=== PATIENT | female | born 1945 | race Caucasian/White ===

== ENCOUNTER 2022-05-05 13:35 | Outpatient (REF) | payer MEDICARE, SELFPAY ==
--- NOTE | ~2022-05-05 | MM_ITS ---
EXAMINATION: MM SCREENING DIGITAL BREAST TOMOSYNTHESIS, BILATERAL CLINICAL INFORMATION: Screening. Asymptomatic. Family history breast cancer, mother. The lifetime risk of breast cancer based on the Tyrer-Cuzick Model is 10%. COMPARISON: Mammography: 07/27/2019, 07/10/2018, 07/03/2017 TECHNIQUE: Digital breast tomosynthesis is performed in both the craniocaudal and mediolateral oblique views along with computer-aided detection (CAD). Synthesized 2D images are generated from the tomosynthesis. FINDINGS: There are scattered areas of fibroglandular density (ACR BI-RADS breast composition Category b). Anterior breast tissue composition borders on heterogeneously dense. There are no significant masses, abnormal calcifications, or other abnormalities. No architectural abnormality or developing density. The axilla and skin contours are unremarkable. No significant changes. MM/MM tomosynthesis screening BI IMPRESSION: No mammographic evidence of malignancy. ASSESSMENT: BI-RADS 1: Negative RECOMMENDATION: Routine annual mammography screening. This patient's information was entered into a reminder system with a target due date for their next mammogram.
== END 2022-05-05 13:36 | disposition home or self-care (01) ==
LOC: HO.MAMMO 13:35
PROVIDERS: Visit Provider Obstetrics & Gynecology
DX: Z12.31 Encounter for screening mammogram for malignant neoplasm of breast (principal)
CPT/HCPCS: 77063; 77067

== ENCOUNTER 2023-05-06 14:11 | Outpatient (REF) | payer MEDICARE, SELFPAY ==
--- NOTE | ~2023-05-06 | MM_ITS ---
EXAMINATION: MM SCREENING DIGITAL BREAST TOMOSYNTHESIS, BILATERAL CLINICAL INFORMATION: Screening. Asymptomatic. The lifetime risk of breast cancer based on the Tyrer-Cuzick Model is 7.3%. COMPARISON: Mammography: 05/05/2022, 07/27/2019, 07/10/2018, and dating back to 2015. TECHNIQUE: Digital breast tomosynthesis is performed in both the craniocaudal and mediolateral oblique views along with computer-aided detection (CAD). Synthesized 2D images are generated from the tomosynthesis. FINDINGS: The breasts are heterogeneously dense, which may obscure small masses (ACR BI-RADS breast composition Category c). There are no suspicious masses, suspicious clustered calcifications, or regions of architectural distortion which can be distinguished from the heterogeneously dense parenchymal pattern. The parenchymal pattern appears stable. MM/MM tomosynthesis screening BI IMPRESSION: No mammographic evidence of malignancy. ASSESSMENT: BI-RADS BI-RADS 1 - Negative RECOMMENDATION: Routine annual mammography screening. 1 year F/U This examination should not preclude the clinical evaluation of a suspicious palpable abnormality. This patient's information was entered into a reminder system with a target due date for their next mammogram.
== END 2023-05-06 14:12 | disposition home or self-care (01) ==
LOC: HO.MAMMO 14:11
PROVIDERS: PCP Family Medicine; Visit Provider Obstetrics & Gynecology
DX: Z12.31 Encounter for screening mammogram for malignant neoplasm of breast (principal)
CPT/HCPCS: 77063; 77067

== ENCOUNTER → 2023-05-06 14:30 | Outpatient (BNV) | payer MEDICARE, SELFPAY | PROVIDERS: PCP Family Medicine; Visit Provider Radiology Diagnostic Radiology | DX: Z12.31 Encounter for screening mammogram for malignant neoplasm of breast (principal) | CPT/HCPCS: 77063; 77067 ==

== ENCOUNTER 2024-09-12 12:13 | Outpatient (REF) | payer MEDICARE, SELFPAY ==
--- NOTE | ~2024-09-12 | MM_ITS ---
EXAMINATION: MM SCREENING DIGITAL BREAST TOMOSYNTHESIS, BILATERAL CLINICAL INFORMATION: Screening. Asymptomatic. COMPARISON: Mammography: Comparison is made with available priors TECHNIQUE: Digital breast mammography with tomosynthesis is performed in both the craniocaudal and mediolateral oblique views along with computer-aided detection (CAD). FINDINGS: There are scattered areas of fibroglandular density (ACR BI-RADS breast composition Category b). Bilateral reduction mammoplasty. There are no significant masses, abnormal calcifications, or other abnormalities. MM/MM tomosynthesis screening BI IMPRESSION: No mammographic evidence of malignancy. ASSESSMENT: BI-RADS BI-RADS 2 - Benign Findings RECOMMENDATION: Routine annual mammography screening. 1 year F/U This examination should not preclude the clinical evaluation of a suspicious palpable abnormality. This patient's information was entered into a reminder system with a target due date for their next mammogram. Electronically signed by: Sandra Scott DO 09/21/2024 03:13 PM TATA
== END 2024-09-12 12:14 | disposition home or self-care (01) ==
LOC: HO.MAMMO 12:13
PROVIDERS: PCP Nurse Practitioner Family; Visit Provider Obstetrics & Gynecology
DX: Z12.31 Encounter for screening mammogram for malignant neoplasm of breast (principal)
CPT/HCPCS: 77063; 77067

== ENCOUNTER → 2024-09-12 12:30 | Outpatient (BNV) | payer MEDICARE, SELFPAY | PROVIDERS: PCP Nurse Practitioner Family; Visit Provider Internal Medicine | DX: Z12.31 Encounter for screening mammogram for malignant neoplasm of breast (principal) | CPT/HCPCS: 77063; 77067 ==

== ENCOUNTER 2025-10-02 14:17 | Outpatient (REF) | payer MEDICARE, SELFPAY ==
--- NOTE | ~2025-10-02 | XR_ITS ---
EXAMINATION: XR THORACIC SPINE CLINICAL INFORMATION: M54.9 - Dorsalgia, unspecified COMPARISON: None available. TECHNIQUE: 2 views of the thoracic spine were obtained. FINDINGS: There is 21 degrees levoscoliosis of the upper thoracic spine with apex at T4. Osteopenia limits evaluation of the thoracic spine on the lateral view. There is likely disc space narrowing in the mid to upper thoracic spine with small anterior osteophytes. XR/XR thoracic spine 3V IMPRESSION: Mild levoscoliosis and degenerative disc disease. Electronically signed by: Adiel Duarte MD 10/02/2025 04:24 PM TATA
--- NOTE | ~2025-10-02 | XR_ITS ---
Examination: Three-view lumbar spine x-ray TECHNIQUE: AP, lateral, lateral spot L-spine x-ray Prior: None FINDINGS: Atherosclerotic calcifications are visible in the abdominal aorta. There are 5 nonrib-bearing lumbar segments. There is 23 degrees levoscoliosis with apex at L2. T12-L1: There is mild disc space narrowing. L1-L2: There is mild disc space narrowing with anterior osteophytes L2-L3: There is mild disc space narrowing with right lateral listhesis L3-L4: There is moderate disc space narrowing with right lateral listhesis. There is facet sclerosis. L4-L5: There is mild disc space narrowing with sclerosis along the endplates on the right side. There is facet sclerosis. L5-S1: There is facet sclerosis. XR/XR lumbar spine 4V min IMPRESSION: Moderate dextroscoliosis with right lateral listhesis at L2-3 and L3-4 and degenerative disc disease with facet osteoarthritis. Electronically signed by: Adiel Duarte MD 10/02/2025 04:21 PM TATA
--- OUTSIDE RECORDS SUMMARY | 2025-10-02 21:52 | XMS_ITS | Data Portability ---
Author Organization [place] - [facility], Allergy Address [address] [place] [address] Care Team Providers Care Floor Manager Name Role Phone JI RIVERA Primary Care [...] 06/16/2025 06/16/2025 Follow up with referring provider. [email or web address] Not available 06/16/2025 14:01:22 Plan of Treatment [...] Organization Details Recorded Time Bleeding from nose 257796044 Active 2020 Epistaxi s; Note: Date Diagnose d: 05/20/2021 10:41 AM (R04.0) Not Available [facility] 4 02:39:56 Impacted cerumen in right ear 08091287532 01425 Active 2020 Impacted cerumen, right ear; Note: Date Diagnose d: 05/20/2021 10:53 AM (H61.21) Not Available [facility] 4 02:39:55 Tinnitus of vascular origin 128452651 Completed 202005/20/2024 Pulsatil e tinnitus , right ear; Note: Date Diagnose d: 05/20/2021 10:53 AM (H93.A1) Not Available [facility] 4 02:40:03 Sensorin eural hearing loss of bilatera l ears 799747229 Active 2020 Sensorin eural hearing loss, bilatera l; Note: Date Diagnose d: 1 2:17 PM (H90.3) Not Available [facility] 4 02:39:58 Tinnitus of right ear 64833193292 08 Active [address] [facility] 4 11:46:49 Xerostom ia 24373594 Active 2024 DINESH BOCANEGRA MD [address],[place] [address], [place], [address] , [facility] 5 14:34:34 Bilatera l hearing loss 59922192 Active 2024 DINESH BOCANEGRA MD [address],[place] [address], [place], [address] , [facility] 5 14:34:48 Problem Notes None recorded. Procedures Surgical History Date Name Laterality Status Provider Name and Address Organization Details Recorded Time 06/16/2025 Air & Speech Audio with Tymps - 78981, 99544 & 88832 completed BRIJESH REINA, AuD [address],[place] [address], [place], [address], [facility] 06/16/2025 14:01:22 05/19/2024 Comp Audio with Tymps - 57437 & 97555 completed MENG DEVINE, AUD [address],[place] [address], [place], [address], [facility] 05/19/2024 13:21:20 Imaging Results None recorded. Procedure Notes None recorded. Medical Equipment None Reported. Allergies Allergen ID Allergen Name Allergen Category Reaction Reaction Severity Criticality Documentation Date Start Date Code Code System Note Provider Name and Address Organization Details Recorded Time 694766 Humira medicatio n Not available Not available Not available 04/28/2024 05028 4 RxNorm Gwendolyn carter [place] - [facility] 4 11:22:31 00915 Non-stero idal anti-infl ammatory agent (substanc e) medicatio n other Not available Not available 03/01/2024 49283 5008 SNOMED React ion: other react ion, Unkno wn; Not Available [facility] 4 00:56:35 55805 Plaquenil medicatio n other Not available Not available 03/01/2024 74823 2 RxNorm React ion: other react ion, Unkno wn; Not Available [facility] 4 00:56:35 77455 Elavil medicatio n other Not available Not available 03/01/2024 00636 RxNorm React ion: other react ion, Unkno wn; Not Available [facility] 4 00:56:38 84901 lidocaine medicatio n other Not available Not available 03/01/2024 6387 RxNorm React ion: other react ion, Unkno wn; Not Available [facility] 4 00:56:44 06873 Cafergot medicatio n other Not available Not available 03/01/202420017 RxNorm React ion: other react ion, Unkno wn; Not Available [facility] 4 00:56:47 Medications Name Sig Start Date [...] % shampoo 04/28 completed Medicati on ID: [id number] B rand Name: ketocona zole Sen d Method: E-Prescr ibed Sub s Allowed: subs OK Medic ationGen ericName : ketocona zole [facility] [id number] B rand Name: ketocona zole Sen d [...] mg tablet 04/28 completed Medicati on ID: [id number] B rand Name: meclizin e Send Method: E-Prescr ibed Sub s Allowed: subs OK Medic ationGen ericName : meclizin e Medica tion ID: [id number] B rand Name: meclizin e Send Method: [...] mcg tablet 04/28 completed Medicati on ID: [id number] B rand Name: levothyr oxine Se nd Method: E-Prescr ibed Sub s Allowed: subs OK Medic ationGen ericName : levothyr oxine Id dication ID: [id number] B rand Name: levothyr oxine Se nd [...] topical cream 2020 active Medicati on ID: [id number] B rand Name: triamcin olone acetonid e [...] topical ointment 04/28 completed Medicati on ID: [id number] B rand Name: clobetas ol Send Method: E-Prescr ibed Sub s Allowed: subs OK Medic ationGen ericName : clobetas ol Medic ation ID: [id number] B rand Name: clobetas ol Send Method: [...] shower cap 06/16 completed Medicati on ID: [id number] B rand Name: fluocino lone and shower cap Send Method: E-Prescr ibed Sub s Allowed: subs OK Medic ationGen ericName : fluocino lone and shower cap Not Available Not Available Not Available Cafergot 05/20 completed Medicati on ID: [id number] B rand Name: Cafergot Send Method: E-Prescr [...] Updated DateTime 04/28/2024 160.02 cm 24.1 kg/m2 28045.[address] [facility] 04/28/2024 11:22:18 Date Recorded Body height Body mass index (BMI) Body weight Provider Name and Address Organization Details Last Updated DateTime 06/16/2025 160.02 cm 23.9 kg/m2 49813.[address] [facility] 06/16/2025 14:21:46 Social History None recorded. Functional [...] Note [id number] FAY MAZA PA-C [facility] [address] [place] [phone] 2 04/28/2024 11:11:56 04/28/2024 11:42:51 Tinnitus of right ear 9854777321 108 H93.11 Impacted c erumen in right ear 0749504787 596914 H61.21 [id number] FAY MAZA PA-C [facility] [address] [place] [phone] 2 05/19/2024 13:01:13 05/19/2024 13:33:58 Tinnitus of right ear 8739747892 108 H93.11 Sensorineu ral hearing loss of bilateral ears 621045625 H90.3 18950 MARYAM ALEJANDRO [facility] [address] [place] [phone] 2 05/19/2024 13:17:20 05/19/2024 14:08:10 Sensorineural hearing loss of bilateral ears 844556668 H90.3 Audiologic al evaluation results: Right ear: Normal sloping to moderate sensorineu ral hearing loss with excellent word recognitio n. Left ear: Normal sloping to moderate sensorineu ral hearing loss with excellent word recognitio n. Tympanomet ry: Right Ear:Type A Left Ear:Type A [id number] DINESH BOCANEGRA MD [facility] [address] [place] [phone] 06/16/2025 13:19:25 06/16/2025 14:34:02 Xerostomia 07306751 K11.7 8025 Likely multifacto rial due to medication as well as not drinking fluids overnight. This seems to improve with drinking fluids during the day. I recommend observatio n. Bilateral hearing loss 95848291 H90.A21 75651449 Audiogram was stable today on audiometri c testing. Asymmetry is subtle. We will continue surveillan ce with a follow-up audiogram in 1 year. I asked her to call with any sudden hearing changes. [id number] Maryam LIVINGSTON [facility] [address] [place] [phone] 2 06/16/2025 14:01:10 06/16/2025 14:41:28 Sensorineural hearing loss of bilateral ears 070350219 H90.3 Audiologic al evaluation results:Ri ght ear:Normal [...] Guarantor Name 06/16/2025 2 [place] Daniela Hoog [id number] Daniela Brody 06/16/2025 1 [place] [employer] Daniela Hoog [id number] Daniela Hoog 06/20/2025 2 [place]) [id number] Daniela Hoog [id number] Daniela Brody Notes Date Note Type [...] carter [place] - [facility] 04/28/2024 11:47:06 05/19/2024 text/html Audiological Evaluation HPIReported by PatientHearing LossFor hearing loss perceived, patient reportshearing loss in both ears (no differences noted between ears)but reportsgradual onset.TinnitusFor tinnitus reported, patient reportsright ear.Use of amplification or other hearing devicesFor use of amplification or other hearing devices, patient reportsnone (does not use amplification). MENG DEVINE, [address], [address], [place] - [facility] 05/19/2024 13:24:36 05/19/2024 text/html ROS as noted in the HPI 78 year old female seen three weeks ago for a whooshing tinnitus in her right ear. She was noted to have a crust overlying the TM. She has been using olive oil drops to the right ear at bedtime. The tinnitus has improved. Fay carter [place] - [facility] 05/19/2024 13:35:51 06/16/2025 text/html ROS as noted in the HPI She has a history of asymmetric sensorineural hearing loss slightly worse in the right ear. She presents for 1 year surveillance audiogram. She denies any hearing changes. She reports her mouth is dry in the morning. She attributes this to some of the medication she is taking. DINESH BOCANEGRA MD [address] [facility],[place] [address], [place], [address], [facility] 06/16/2025 14:35:53 06/16/2025 text/html Audiological Evaluation HPIReported by PatientHearing LossFor hearing loss perceived, patient reportshearing loss in both ears (no differences noted between ears). Maryam LIVINGSTON [address] [facility],[place] [address], [place], [address], [facility] 06/16/2025 14:07:39 OBGyn Episode No OBEpisode recorded.
== END 2025-10-02 14:18 | disposition home or self-care (01) ==
LOC: HO.XRAY 14:17
PROVIDERS: PCP Nurse Practitioner Family; Visit Provider Nurse Practitioner Family
DX: G89.4 Chronic pain syndrome (principal); M96.1 Postlaminectomy syndrome, not elsewhere classified; M47.817 Spondylosis without myelopathy or radiculopathy, lumbosacral region; M43.16 Spondylolisthesis, lumbar region; M51.360 Other intervertebral disc degeneration, lumbar region with discogenic back pain only; M41.9 Scoliosis, unspecified
CPT/HCPCS: 72072; 72110; 99202

== ENCOUNTER 2025-10-02 14:17 | Outpatient (AMB) | payer MEDICARE, SELFPAY ==
--- NOTE | 2025-10-02 14:20 | A.OFFVIS_ITS ---
Vital Signs 10/02/25 14:27 Height 5 ft 3 in Weight 137 lb BMI 24.3 BP 150/72 H Blood Pressure Location Rt brachial Position Sitting Pulse 87 Pulse Source Pulse Oximeter Pulse Oximetry (%) 98 Oxygen Delivery Method Room Air Intake Visit Reasons: CHRONIC LOW BACK PAIN Intake Note: Pain today 610 Women Specialist Required: No Accompanied by: Spouse Allergies adalimumab (From Humira) Allergy (Unknown, Verified 10/02/25 14:48) Unknown amitriptyline Allergy (Unknown, Verified 10/02/25 14:47) Unknown caffeine (Cafergot) Allergy (Unknown, Verified 10/02/25 14:47) Hallucinations ergotamine (Cafergot) Allergy (Unknown, Verified 10/02/25 14:47) Hallucinations hydroxychloroquine (Plaquenil) Allergy (Unknown, Verified 10/02/25 14:47) rash lidocaine Allergy (Unknown, Verified 10/02/25 14:47) Dizziness Elavil Allergy (Unknown, Uncoded 10/02/25 14:47) vertigo NSAIDS Allergy (Unknown, Uncoded 10/02/25 14:47) Gastrointestinal Hemorrhage HPI Comments Details: The patient is a 79-year-old female presenting for evaluation and management of chronic low back pain. Her back pain began in 1987 after a fall during a volleyball game at age 42. She underwent a micro-lumbar surgery at L5-S1 in December 1988. Patient reports that post-operatively, a myelogram revealed adhesions where the thecal sac abuts the nerves, and her surgeon advised against further surgery, warning it could result in her needing a wheelchair. The patient describes the pain as a constant, aching sensation localized to the lower back, which can spread to the middle back. The pain is exacerbated by prolonged sitting, standing, lifting, and shopping, with an intensity that varies from 3/10 to 10/10. She has not had recent imaging, with her last MRI dating back to 1990. She reports significant limitations in her activities of daily living, including inability to do groceries, cook, vacuum, do laundry, make the bed, iron, or travel. Her pain has led to a mostly sedentary lifestyle since 1987. Past treatments have included numerours sessions of physical therapy, acupuncture, a TENS unit, a sculpted back brace, and hypnotic analgesia, all with limited success and some PT sessions exacerbated her pain. Her current pain management regimen consists of Fioricet, duloxetine and diazepam, which she has been taking since 1991 and feels are the only effective medications. Her Fioricet dose was recently reduced from four pills per day to one per day, which has resulted in worsening pain. She takes diazepam 2.5-5 mg as needed. She reports taking additional acetaminophen to manage the increased pain since the Fioricet reduction. Her medical history is also significant for fibromyalgia, tension and migraine headaches, polymyalgia rheumatica (PMR), psoriatic arthritis, glaucoma, and MGUS. For PMR, she takes prednisone and is unable to taper the dose without a significant increase in symptoms. She has tried numerous other medications, including NSAIDs which caused GI bleeding and skin tears, and various antidepressants for anxiety and depression which caused side effects like vertigo. She is on duloxetine 60 mg but experienced significant dizziness with an attempted dose increase. The patient denies any history of diabetes, muscle spasms in the back, urinary incontinence, or leg heaviness. She does not smoke, drink alcohol, or use any illicit substances. She currently sees a Psychologist. 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 Pain Description - Pain Onset: Began in 1987 after a volleyball injury. - Pain Location: Localized to the lower back, spreads to the middle back. - Pain Radiation: Does not radiate to the legs. - Pain Quality: Described as aching, sore, heavy, and throbbing. - Pain Severity: Varies throughout the day, ranging from 3/10 to 10/10. - Exacerbating Factors: Worsened by prolonged sitting or standing, lifting, and shopping. - Interference with Function: Pain significantly impacts sleep and daily activities, leading to a sedentary lifestyle. - Associated Symptoms: Causes feelings of tiredness and exhaustion. Pain Management - Analgesia: The patient reports her pain has worsened since her Fioricet was reduced to one pill per day. - She states that Fioricet and diazepam are the only medications that have helped control her pain. - She has been taking extra acetaminophen (2000 mg/day) since the Fioricet reduction. 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 - She has lived a mostly sedentary life since 1987 due to her pain. - Adverse Effects: Patient has a history of GI bleeding with ibuprofen, skin tears with naproxen, and severe vertigo with Elavil. - She reports dizziness with an attempted increase in her duloxetine dose. - She worries about potential liver damage from increased acetaminophen use. - Affect: The patient reports significant anxiety and difficulty sleeping due to her pain and functional limitations. - Aberrant Drug-Related Behaviors: The patient denies a history of opioid use outside of post-surgical settings, alcohol use, smoking, or illicit drug use. - She states she has never asked for more medication but also cannot imagine her life without Fioricet or diazepam. 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 - Neurological: Reports tension and migraine headaches. - Denies current migraines, leg pain, heaviness in the legs, and urine incontinence. - Musculoskeletal: Reports chronic aching pain in the lower and middle back. - Denies muscle spasms. - Psychiatric: Reports anxiety and difficulty sleeping. - Endocrine: Denies diabetes. Const All systems reviewed & are unremarkable except as noted in HPI and below Physical Exam Vital Signs: Last Vital Signs Pulse 87 10/02/25 14:27 BP 150/72 H 10/02/25 14:27 Pulse Ox 98 10/02/25 14:27 Oxygen Delivery Method Room Air 10/02/25 14:27 BMI result Body Mass Index 24.3 General: Appears afebrile. Alert and oriented. Mood and affect appropriate. Follows and participates in conversation appropriately. Respiratory effort is unlabored. No cough. Able to transition from sit to stand unassisted. Guarded transfers and ambulation. Patient is unable to perform toe and heel walking due to back pain. General: Yes no CVA tenderness Back/Spine/Pelvis Other: Limited lumbar ROM due pain. Lumbar flexion and extension reproduces pain. Mild to moderate TTP midline lumbar spine and over the sacroiliac joint areas. She is unable to perform a straight leg raise or maintain the leg parallel to the floor due to pain.Demonstrates 5/5 strength of quadriceps bilaterally as well as flexion/dorsiflexion of bilateral feet against resistance. 2+ pedal pulses bilaterally. Facet loading test positive bilaterally. No groin pain with I/E hip rotations. Valsalva maneuver negative. Back: no CVA tenderness Cervical Spine: loss of normal cervical lordosis, cervical muscular tenderness, No Cervical spine scars present and Cervical spine tenderness Thoracic/Lumbar Spine: thoracic and lumbar spine normal to inspection, Thoracic/lumbar spine scar(s), kyphosis, pain with thoraco-lumbar ROM, paraspinal muscle tenderness, thoraco-lumbar ROM limited, Thoracic/lumbar scoliosis, No thoracic spinal tenderness and lumbar spinal tenderness (upper and lower lumbar) Sacroiliac joints: bilaterally (Unable to perform provocative tests due to pain increase) tender to palpation Extrem General: Yes capillary refill normal, Yes no clubbing, cyanosis or edema and Yes no calf tenderness Results Reviewed Results Reviewed: XR lumbar spine 4V min 10/02/25 TECHNIQUE: AP, lateral, lateral spot L-spine x-ray Prior: None FINDINGS: Atherosclerotic calcifications are visible in the abdominal aorta. There are 5 nonrib-bearing lumbar segments. There is 23 degrees levoscoliosis with apex at L2. T12-L1: There is mild disc space narrowing. L1-L2: There is mild disc space narrowing with anterior osteophytes L2-L3: There is mild disc space narrowing with right lateral listhesis L3-L4: There is moderate disc space narrowing with right lateral listhesis. There is facet sclerosis. L4-L5: There is mild disc space narrowing with sclerosis along the endplates on the right side. There is facet sclerosis. L5-S1: There is facet sclerosis. IMPRESSION: Moderate dextroscoliosis with right lateral listhesis at L2-3 and L3-4 and degenerative disc disease with facet osteoarthritis. XR THORACIC SPINE 10/02/25 CLINICAL INFORMATION: M54.9 - Dorsalgia, unspecified COMPARISON: None available. TECHNIQUE: 2 views of the thoracic spine were obtained. FINDINGS: There is 21 degrees levoscoliosis of the upper thoracic spine with apex at T4. Osteopenia limits evaluation of the thoracic spine on the lateral view. There is likely disc space narrowing in the mid to upper thoracic spine with small anterior osteophytes. IMPRESSION: Mild levoscoliosis and degenerative disc disease. Assessment & Plan Assessment & Plan (1) Chronic pain syndrome: Code(s): G89.4 - Chronic pain syndrome Category: Medical (2) Lumbar post-laminectomy syndrome: Code(s): M96.1 - Postlaminectomy syndrome, not elsewhere classified Category: Medical (3) Lumbosacral spondylosis: Code(s): M47.817 - Spondylosis without myelopathy or radiculopathy, lumbosacral region Category: Medical (4) Mid back pain: Code(s): M54.9 - Dorsalgia, unspecified Category: Medical (5) Spondylolisthesis, lumbar region: Code(s): M43.16 - Spondylolisthesis, lumbar region Category: Medical (6) Lumbar degenerative disc disease: Code(s): M51.369 - Other intervertebral disc degeneration, lumbar region without mention of lumbar back pain or lower extremity pain Category: Medical (7) Scoliosis of thoracolumbar spine: Code(s): M41.9 - Scoliosis, unspecified Category: Medical Plan Plan is to proceed with MRI of the lumbar spine to assess for neural integrity and compression and follow up on previous MRI findings as her last MRI imaging is over 30 years old and also follow up on recent xray findings. We discussed interventional treatments for chronic mid and low back pain, including neuromodulation, radiofrequency ablation, diagnostic and therapeutic injections. Patient is hesitant towards implantable devices. I have informed patient that I do not offer chronic opioid prescribing. We discussed long-term and daily use of Fioricet for chronic pain is not supported and can be taken for tension headaches and sometimes can be used off-label for migraines if other conservative treatments have failed. It was recommended she discuss safer, alternative long-term pain management strategies with her primary care provider, with suggestions including low-dose opioid patches (Butrans, Fentanyl) or sublingual films (Belbuca), which may have fewer side effects. The patient was also advised to follow up with her primary care provider or a Neurologist regarding optimal management of her fibromyalgia and persistent tension headaches as well as consider cognitive behavioral therapy through her Psychologist. All questions and concerns have been answered and patient agreed with the treatment plan. Follow up for MRI results and sooner as needed. Patient was informed and verbally consented to the use of an ambient scribe for clinic note documentation during this visit. Orders: Orders XR thoracic spine 3V 10/02/25 M54.9 - Dorsalgia, unspecified XR lumbar spine 4V min 10/02/25 M47.817 - Spondylosis without myelopathy or radiculopathy, lumbosacral region, M96.1 - Postlaminectomy syndrome, not elsewhere classified MR lumbar spine wo con Today M41.9 - Scoliosis, unspecified, M43.16 - Spondylolisthesis, lumbar region, M47.817 - Spondylosis without myelopathy or radiculopathy, lumbosacral region, M51.369 - Other intervertebral disc degeneration, lumbar region without mention of lumbar back pain or lower extremity pain, M96.1 - Postlaminectomy syndrome, not elsewhere classified Coding Level of Care Code New Pt Level 4 (50186) Diagnoses Chronic pain syndrome G89.4 Lumbar post-laminectomy syndrome M96.1 Lumbosacral spondylosis M47.817 Mid back pain M54.9 Spondylolisthesis, lumbar region M43.16 Lumbar degenerative disc disease M51.369 Scoliosis of thoracolumbar spine M41.9
[2025-10-02 14:27] VITALS: BP 150/72; PULSE 87; O2SAT 98; BMI 24.3
--- OUTSIDE RECORDS SUMMARY | 2025-10-02 20:42 | XMS_ITS | Clinical Summary ---
Author Organization [facility] Prior to 03/18/[address] [place] [address] Care Team Providers Care Unit Controller Name Role Phone Alejandra Waldrop MD Primary Care Provider [phone] Allergies Active Allergy Reactions Criticality Noted Date Comments Ergotamine-Caffeine 11/13/2017 Amitriptyline 11/13/2017 Lidocaine 11/13/2017 Nsaids 11/13/2017 Hydroxychloroquine 11/13/2017 Medications Medication Sig Dispensed Refills Start Date End Date Status amLODIPine (NORVASC) tablet 5 mg Take 5 mg by mouth daily. 0 Active duloxetine (CYMBALTA) DR capsule 60 mg Take 60 mg by mouth daily. 0 Active DIAZEPAM PO Take 2.5 mg by mouth 4 (four) times a day. 0 Active Adalimumab (HUMIRA) 40 MG/0.8ML injection Inject 40 mg under the skin once. 0 Active hydrochlorothiazide (MICROZIDE) 12.5 MG capsule Take 12.5 mg by mouth daily. 0 Active levothyroxine (SYNTHROID, LEVOXYL) tablet 100 mcg Take 100 mcg by mouth every morning on an empty stomach. 0 Active omeprazole (PRILOSEC) 20 MG capsule Take 20 mg by mouth daily. 0 Active Butalbital-Acetaminoph en 25-325 MG TABS Take 2 tablets by mouth 3 (three) times a day. 0 Active predniSONE 5 MG TBEC Take 5 mg by mouth every morning with breakfast. 0 Active vitamin C (ASCORBIC ACID) 500 MG tablet Take 500 mg by mouth daily. 0 Active Cholecalciferol (VITAMIN D3) 2000 units capsule Take 2,000 Units by mouth daily. 0 Active docusate sodium (COLACE) 100 MG capsule Take 100 mg by mouth 2 (two) times a day. 0 Active Active Problems Problem Noted Date Diagnosed Date Acquired hypothyroidism 11/04/2019 Macrocytosis without anemia 11/16/2018 H/O cold sores 11/16/2018 MGUS (monoclonal gammopathy of unknown significa nce) 11/13/2017 Psoriatic arthritis 11/13/2017 H/O subarachnoid hemorrhage 11/13/2017 H/O superficial phlebitis 11/13/2017 Family History Medical History Relation Name Comments Bone cancer Maternal Grandmother Breast cancer Mother Colon cancer Mother Multiple myeloma Neg Hx Relation Name Status Comments Maternal Grandmother Mother Social History Tobacco Use Types Packs/Day Years Used Date Smoking Tobacco: Never Smokeless Tobacco: Never Alcohol Use Standard Drinks/Week Comments No 0 (1 standard drink = 0.6 oz pur e alcohol) Sex and Gender Information Value Date Recorded Sex Assigned at Not on file Gender Identity Not on file Sexual Orientation Not on file Last Filed Vital Signs Vital Sign Reading Time Taken Comments Blood Pressure 148/68 11/04/2019 9:40 AM EST Pulse 71 11/04/2019 9:40 AM EST Temperature 37 C (98.6 F) 11/04/2019 9:40 AM EST Respiratory Rate - - Oxygen Saturation - - Inhaled Oxygen Concentration - - Weight 77.6 kg (171 lb) 11/04/2019 9:40 AM EST Height 160 cm (5' 3 ) 11/04/2019 9:40 AM EST Body Mass Index 30.29 11/04/2019 9:40 AM EST Plan of Treatment Health Maintenance Due Date Last Done Comments Hepatitis C Screening 1945 COVID-19 Vaccine (#1) 12/16/1952 Pneumococcal Vaccine (1 of 2 - PCV) 12/16/1953 Depression Screening 1959 Preventative Health Evaluation 12/16/1965 DTap / Tdap / Td (1 - Tdap) 12/16/1966 Shingrix-Zoster Vaccine (1 of 2) 12/16/1966 Fall Risk Assessment 12/16/2012 Osteoporosis Screening (DEXA Scan) 12/16/2012 RSV Adult > 60+ Yrs or Pregn ant (1 - 1-dose 75+ series) 12/16/2022 Influenza Vaccine (#1) 2025 Hepatitis B Vaccines Aged Out No long er eligible based on patient's age to complete this topic RSV Ped < 20 months Aged Out No longe r eligible based on patient's age to complete this topic Care Teams Unit Controller Relationship Specialty Start Date End Date Alejandra Waldrop MD [address] [place] [address] [place] [id number] PCP - General Family Medicine 10/16/17
--- OUTSIDE RECORDS SUMMARY | 2025-10-02 20:42 | XMS_ITS | Data Portability ---
Author Organization [place] - [facility], Allergy Address [address] [place] [address] Care Team Providers Care Manager Life Insurance Name Role Phone JI RIVERA Primary Care Provider Assessment Encounter Date Assessment Date Assessment LastModified by Organization Details LastModified Time 04/28/2024 04/28/2024 On examination today she does have a crust overlying the right tympanic membrane, likely related to dry flaky skin. I was unable to completely debride this today. I would recommend a few drops of olive oil or mineral oil at bedtime. This should help soften the crusting and make it more amenable to removal. She will follow up in 3-4 weeks. If no improvement in the tinnitus, we can plan on an updated audiogram at that time. [email or web address] Not available 04/28/2024 11:46:45 05/19/2024 05/19/2024 On examination today the crust overlying the TM has resolved. Ear exam is normal. Audiogram demonstrates a high frequency sensorineural hearing loss bilaterally. The hearing is slightly worse in the right ear than the left, but not significant enough to warrant further work up. Recommend repeat audiogram in one year. [email or web address] Not available 05/19/2024 13:35:26 05/19/2024 05/19/2024 Recommendations: Follow up with referring provider. [email or web address] Not available 05/19/2024 13:17:33 06/16/2025 06/16/2025 Follow up with referring provider. [email or web address] Not available 06/16/2025 14:01:22 Plan of Treatment Reminders Order Date Submit Date Provider Last Modified By Organization Details Last Modified Time Details Appointments Hearing Test 2025 01:00P M Hearing Test Not available Not available Not available Establish ed 30 2025 01:30P M DINESH Bolivar MD Not available Not available Not available Lab None recorded. Referral None recorded. Procedures None recorded. Surgeries None recorded. Imaging None recorded. Medication Orders None recorded. Patient TargetsNo targets recorded. Patient InstructionsNo instructions recorded. Reason for Referral None Reported. Results Created Date Observation Date Name Description Value Unit Range Abnormal Flag Note LastModifiedBy Organization Detail LastModifiedTime 05/19/20 audio gram No observ ation record ed. BARCODE Not Available 2023 16:55:32 06/09/20 24 06/17/2021 imagi ng/di agnos tic resul t No observ ation record ed. [email or web address] Not Available 20:09:20 06/09/20 24 06/17/2021 audio gram No observ ation record ed. [email or web address] Not Available 20:09:25 06/16/20 audio gram No observ ation record ed. BARCODE Not Available 2024 16:51:25 Result Notes None recorded. Problems Name Problem SNOMED Code Status Onset Date Resolution Date Notes Provider Name and Address Organization Details Recorded Time Bleeding from nose 927950753 Active 2020 Epistaxi s; Note: Date Diagnose d: 05/20/2021 10:41 AM (R04.0) Not Available [facility] 4 02:39:56 Impacted cerumen in right ear 13268842967 53705 Active 2020 Impacted cerumen, right ear; Note: Date Diagnose d: 05/20/2021 10:53 AM (H61.21) Not Available [facility] 4 02:39:55 Tinnitus of vascular origin 888252842 Completed 202005/20/2024 Pulsatil e tinnitus , right ear; Note: Date Diagnose d: 05/20/2021 10:53 AM (H93.A1) Not Available [facility] 4 02:40:03 Sensorin eural hearing loss of bilatera l ears 962555526 Active 2020 Sensorin eural hearing loss, bilatera l; Note: Date Diagnose d: 1 2:17 PM (H90.3) Not Available [facility] 4 02:39:58 Tinnitus of right ear 65696335816 08 Active 2023 Fay carter [facility] 4 11:46:49 Xerostom ia 74653776 Active 2024 DINESH BOCANEGRA MD [address] [facility],[place] [address], [place], [address] , [facility] [place] 5 14:34:34 Bilatera l hearing loss 74386608 Active 2024 DINESH BOCANEGRA MD [address] [facility],[place] [address], [place], [address] , [facility] 5 14:34:48 Problem Notes None recorded. Procedures Surgical History Date Name Laterality Status Provider Name and Address Organization Details Recorded Time 06/16/2025 Air & Speech Audio with Tymps - 17907, 84610 & 50420 completed BRIJESH REINA, AuD [address] [facility],[place] [address], [place], [address], [facility] 06/16/2025 14:01:22 05/19/2024 Comp Audio with Tymps - 07326 & 58330 completed MENG DEVINE, AUD [address] [facility],[place] [address], [place], [address], [facility] 05/19/2024 13:21:20 Imaging Results None recorded. Procedure Notes None recorded. Medical Equipment None Reported. Allergies Allergen ID Allergen Name Allergen Category Reaction Reaction Severity Criticality Documentation Date Start Date Code Code System Note Provider Name and Address Organization Details Recorded Time 336289 Humira medicatio n Not available Not available Not available 04/28/2024 73164 4 RxNorm Gwendolyn carter [place] - [facility] 4 11:22:31 72849 Non-stero idal anti-infl ammatory agent (substanc e) medicatio n other Not available Not available 03/01/2024 96724 5008 SNOMED React ion: other react ion, Unkno wn; Not Available [facility] 4 00:56:35 74150 Plaquenil medicatio n other Not available Not available 03/01/2024 27194 2 RxNorm React ion: other react ion, Unkno wn; Not Available [facility] 4 00:56:35 82310 Elavil medicatio n other Not available Not available 03/01/2024 66279 RxNorm React ion: other react ion, Unkno wn; Not Available [facility] 4 00:56:38 34235 lidocaine medicatio n other Not available Not available 03/01/2024 6387 RxNorm React ion: other react ion, Unkno wn; Not Available [facility] 4 00:56:44 63733 Cafergot medicatio n other Not available Not available 03/01/202420017 RxNorm React ion: other react ion, Unkno wn; Not Available [facility] 4 00:56:47 Medications Name Sig Start Date Stop Date Status Note LastModified by Organization Details LastModified Time amoxicill in 500 mg capsule TAKE 1 CAPSULE BY MOUTH THREE TIMES A DAY UNTIL GONE 06/16 completed Not Available Not Available Not Available levothyro xine 137 mcg tablet TAKE 1 TABLET BY MOUTH EVERY DAY 06/16 completed Not Available Not Available Not Available ketoconaz ole 2 % shampoo 04/28 completed Medicati on ID: [id number] B rand Name: ketocona zole Sen d Method: E-Prescr ibed Sub s Allowed: subs OK Medic ationGen ericName : ketocona zole [facility]: [id number] B rand Name: ketocona zole Sen d Method: E-Prescr ibed Sub s Allowed: subs OK Medic ationGen ericName : ketocona zole Not Available Not Available Not Available fluocinol one 0.01 % topical cream APPLY TO AFFECTED AREA ON FACE TWICE A DAY NEEDED active Not Available Not Available No t Available ondansetr on HCl 4 mg tablet TAKE 1 TABLET BY MOUTH EVERY 8 HOURS NEEDED FOR NAUSEA 04/28 completed Not Available Not Available Not Available prednison e 5 mg tablet TAKE 1 TABLET BY MOUTH EVERY DAY IN THE MORNING active Not Available Not Available No t Available pimecroli mus 1 % topical cream APPLY TO AFFECTED AREA TWICE A DAY ON THE FACE NEEDED active Not Available Not Available No t Available meclizine 12.5 mg tablet 04/28 completed Medicati on ID: [id number] B rand Name: meclizin e Send Method: E-Prescr ibed Sub s Allowed: subs OK Medic ationGen ericName : meclizin e Medica tion ID: [id number] B rand Name: meclizin e Send Method: E-Prescr ibed Sub s Allowed: subs OK Medic ationGen ericName : meclizin e Not Available Not Available Not Available amlodipin e 5 mg tablet TAKE 1 TABLET BY MOUTH EVERY DAY IN THE MORNING active Not Available Not Available No t Available butalbita l-acetami nophen-ca ffeine 50 mg-325 mg-40 mg tablet TAKE 1 TABLET BY MOUTH TWICE A DAY NEEDED FOR HEADACHE active Not Available Not Available No t Available levothyro xine 100 mcg tablet 04/28 completed Medicati on ID: [id number] B rand Name: levothyr oxine Se nd Method: E-Prescr ibed Sub s Allowed: subs OK Medic ationGen ericName : levothyr oxine Hi dication ID: [id number] B rand Name: levothyr oxine Se nd Method: E-Prescr ibed Sub s Allowed: subs OK Medic ationGen ericName : levothyr oxine Not Available Not Available Not Available oxycodone -acetamin ophen 5 mg-325 mg tablet TAKE 1 TABLET BY MOUTH EVERY 4 (FOUR) HOURS NEEDED FOR PAIN 04/28 completed Not Available Not Available Not Available estradiol 1 mg tablet TAKE 1 TABLET BY MOUTH EVERY DAY active Not Available Not Available No t Available triamcino lone acetonide 0.025 % topical cream 2020 active Medicati on ID: [id number] B rand Name: triamcin olone acetonid e Send Method: E-Prescr ibed Sub s Allowed: subs OK Medic ationGen ericName : triamcin olone acetonid e Not Available Not Available Not Available prednison e 1 mg tablet TAKE 2 TABLETS BY MOUTH ALONG WITH ONE 5MG TABLET TO MAKE 7MG DAILY active Not Available Not Available No t Available cephalexi n 500 mg capsule TAKE 1 CAPSULE (500 MG TOTAL) BY MOUTH 4 (FOUR) TIMES A DAY FOR 7 DAYS. TAKE WITH FOOD 04/28 completed Not Available Not Available Not Available levothyro xine 125 mcg tablet TAKE 1 TABLET BY MOUTH EVERY DAY active Not Available Not Available No t Available nystatin- triamcino lone 100,000 unit/g-0. 1 % topical cream APPLY TO AFFECTED AREA TWICE A DAY NEEDED active Not Available Not Available No t Available omeprazol e 20 mg capsule,d elayed release TAKE ONE CAPSULE EVERY MORNING BEFORE BREAKFAS T active Not Available Not Available No t Available hydrochlo rothiazid e 25 mg tablet TAKE 1/2 TABLET BY MOUTH EVERY MORNING active Not Available Not Available No t Available clobetaso l 0.05 % topical ointment 04/28 completed Medicati on ID: [id number] B rand Name: clobetas ol Send Method: E-Prescr ibed Sub s Allowed: subs OK Medic ationGen ericName : clobetas ol Medic ation ID: [id number] B rand Name: clobetas ol Send Method: E-Prescr ibed Sub s Allowed: subs OK Medic ationGen ericName : clobetas ol Not Available Not Available Not Available fluocinol one 0.01 % topical solution APPLY TWICE DAILY TO SCALP NEEDED ITCH active Not Available Not Available No t Available estradiol 0.01% (0.1 mg/gram) vaginal cream INSERT 1 GRAM VAGINALL Y TWICE A WEEK FOR 90 DAYS. USE INTERNAL LY & EXTERNAL LY. active Not Available Not Available No t Available diazepam 5 mg tablet TAKE 1 TABLET BY MOUTH 4 TIMES A DAY active Not Available Not Available No t Available nitrofura ntoin monohydra te/macroc rystals 100 mg capsule TAKE 1 CAPSULE BY MOUTH TWICE A DAY FOR 7 DAYS 04/28 completed Not Available Not Available Not Available duloxetin e 60 mg capsule,d elayed release TAKE 1 CAPSULE BY MOUTH EVERY DAY active Not Available Not Available No t Available fluocinol one 0.01 % scalp oil and shower cap 06/16 completed Medicati on ID: [id number] B rand Name: fluocino lone and shower cap Send Method: E-Prescr ibed Sub s Allowed: subs OK Medic ationGen ericName : fluocino lone and shower cap Not Available Not Available Not Available Cafergot 05/20 completed Medicati on ID: [id number] B rand Name: Cafergot Send Method: E-Prescr ibed Sub s Allowed: subs OK Medic ationGen ericName : Cafergot Not Available Not Available Not Available Cosentyx Pen 300 mg/2 pens (150 mg/mL) subcutane ous pen injector active Not Available Not Available Not Available Vitals Date Recorded Body height Body mass index (BMI) Body weight Provider Name and Address Organization Details Last Updated DateTime 04/28/2024 160.02 cm 24.1 kg/m2 84868.56 g Gwendolyn Shriley [facility] 04/28/2024 11:22:18 Date Recorded Body height Body mass index (BMI) Body weight Provider Name and Address Organization Details Last Updated DateTime 06/16/2025 160.02 cm 23.9 kg/m2 86675.97 g Gwendolyn Shirley [facility] 06/16/2025 14:21:46 Social History None recorded. Functional Status None recorded. Mental Status None recorded. Family History Nothing Reported. Medical History No medical history recorded. Gynecological HistoryNo gynecological history recorded. Obstetrics History GPAL:G 0 P 0 0 0 0 Past Encounters Encounter ID Performer Location Encounter Start Date Encounter Closed Date Diagnosis/Indication Diagnosis SNOMED-CT Code Diagnosis ICD10 Code Diagnosis IMO Codes Diagnosis Note [id number] FAY MAZA PA-C [facility] on [address] [place] [phone] 04/28/2024 11:11:56 04/28/2024 11:42:51 Tinnitus of right ear 2817732833 108 H93.11 Impacted c erumen in right ear 2508235259 948645 H61.21 [id number] FAY MAZA PA-C [facility] on [address] [place] [phone] 05/19/2024 13:01:13 05/19/2024 13:33:58 Tinnitus of right ear 6040747294 108 H93.11 Sensorineu ral hearing loss of bilateral ears 844207012 H90.3 [id number] MARYAM ALEJANDRO [facility] on [address] [place] [phone] 05/19/2024 13:17:20 05/19/2024 14:08:10 Sensorineural hearing loss of bilateral ears 210680057 H90.3 Audiologic al evaluation results: Right ear: Normal sloping to moderate sensorineu ral hearing loss with excellent word recognitio n. Left ear: Normal sloping to moderate sensorineu ral hearing loss with excellent word recognitio n. Tympanomet ry: Right Ear:Type A Left Ear:Type A [id number] DINESH BOCANEGRA MD [facility] on [address] [place] [phone] 06/16/2025 13:19:25 06/16/2025 14:34:02 Xerostomia 41156365 K11.7 8025 Likely multifacto rial due to medication as well as not drinking fluids overnight. This seems to improve with drinking fluids during the day. I recommend observatio n. Bilateral hearing loss 58189422 H90.A21 63485039 Audiogram was stable today on audiometri c testing. Asymmetry is subtle. We will continue surveillan ce with a follow-up audiogram in 1 year. I asked her to call with any sudden hearing changes. [id number] Maryam LIVINGSTON [facility] on [address] [place] [id number] 06/16/2025 14:01:10 06/16/2025 14:41:28 Sensorineural hearing loss of bilateral ears 865469990 H90.3 Audiologic al evaluation results:Ri ght ear:Normal hearing from 250 through 1500 Hz sloping to a moderate sensorineu ral hearing loss with excellent word recognitio n.Left ear:Normal hearing from 250 through 1000 Hz sloping to a moderate sensorineu ral hearing loss with excellent word recognitio n. Tympanomet ry:Right Ear:Type ALeft Ear:Type A Health Concerns Section Related Observation LastModified by Organization Detai ls LastModified Time None Recorded Concern Status LastModified by Organization Details LastModified Time None Recorded Advance Directives Directive None Recorded Payers Insurance Date Sequence Insurance Name Policy Number Policy Lux Covered Member ID Lux Member ID Guarantor Name 06/16/2025 2 [place] Daniela Hoog [id number] Daniela Brody 06/16/2025 1 [place] [employer] Daniela Hoog [id number] Daniela Hoog 06/20/2025 2 [place] [id number] Daniela Hoog [id number] Daniela Brody Notes Date Note Type Note Provider Name and Address Organization Details Recorded Time 04/28/2024 text/html ROS as noted in the HPI 78 year old female presents today for evaluation of the right ear.She was last seen about three years ago with whooshing in her right ear that resolved with cerumen removal.The whooshing has returned and she is hopeful it is just related to wax again. No changes to her hearing. She does have a history of psoriasis that affects her scalp and ears. Fay carter [place] - [facility] 04/28/2024 11:47:06 05/19/2024 text/html Audiological Evaluation HPIReported by PatientHearing LossFor hearing loss perceived, patient reportshearing loss in both ears (no differences noted between ears)but reportsgradual onset.TinnitusFor tinnitus reported, patient reportsright ear.Use of amplification or other hearing devicesFor use of amplification or other hearing devices, patient reportsnone (does not use amplification). MENG DEVINE, [address], [address], [place] - [facility] 05/19/2024 13:24:36 05/19/2024 text/html ROS as noted in the HPI 78 year old female seen three weeks ago for a whooshing tinnitus in her right ear. She was noted to have a crust overlying the TM. She has been using olive oil drops to the right ear at bedtime. The tinnitus has improved. Fay carter [place] - [facility] 05/19/2024 13:35:51 06/16/2025 text/html ROS as noted in the HPI She has a history of asymmetric sensorineural hearing loss slightly worse in the right ear. She presents for 1 year surveillance audiogram. She denies any hearing changes. She reports her mouth is dry in the morning. She attributes this to some of the medication she is taking. DINESH BOCANEGRA MD [address] [facility],[address] [address], [place], [address], [facility] 06/16/2025 14:35:53 06/16/2025 text/html Audiological Evaluation HPIReported by PatientHearing LossFor hearing loss perceived, patient reportshearing loss in both ears (no differences noted between ears). Maryam LIVINGSTON [address] [facility],[address] [address], [place], [address], [facility] 06/16/2025 14:07:39 OBGyn Episode No OBEpisode recorded.
--- OUTSIDE RECORDS SUMMARY | 2025-10-02 20:42 | XMS_ITS | Encounter Summary ---
Author Organization [facility] Address [address] [facility] [address] [place] [address] Phone Care Team Providers Care Field Auto Appraiser Name Role Phone Alejandra Waldrop MD Primary Care Provider Encounter Details Date Type Department Care Team (Late st Contact Info) Description 05/22/2023 Procedure Pass [place] Admitting Dept - Virtual Department [address] [place] [address] Social History Tobacco Use Types Packs/Day Years Used Date Smoking Tobacco: Never Smokeless Tobacco: Never Alcohol Use Standard Drinks/Week Comments Not Currently 0 (1 standard drink = 0.6 oz pur e alcohol) Education Answer Date Recorded Are you interested in more education? Not on pool e 02/13/2023 Are you concerned about learning? Not on file 02/13/2023 No 02/13/2023 No 02/13/2023 Digital Access Answer Date Recorded No 03/10/2023 No 03/10/2023 Reliable internet access at home? Not on file 03/10/2023 Device with a working camera? Not on file Intimate Partner Violence Answer Date R ecorded Are you denied basic needs s uch as food, clothing, or medical care? No 05/18/2023 In the past 12 months have y ou been in a relationship with a person who hurts, threatens, or tries to control you? No 05/18/2023 Are you denied basic needs s uch as food, clothing, or medical care? No 05/18/2023 In the past 12 months have y ou been in a relationship with a person who hurts, threatens, or tries to control you? No 05/18/2023 Comments No Sex and Gender Information Value Date Recorded Sex Assigned at Not on file Legal Sex Female 12:41 PM EDT Gender Identity Not on file Sexual Orientation Not on file documented as of this encounter Plan of Treatment Not on file documented as of this encounter Visit Diagnoses Not on filedocumented in this encounter Care Teams Field Auto Appraiser Relationship Specialty Start Date End Date Alejandra Waldrop MD [address] [place] [address] PCP - General Family Medicine 08/16/20 documented as of this encounter Additional Source Comments The information contained in this document represents components of the legal health record. It is not the complete legal health record.[facility]
--- OUTSIDE RECORDS SUMMARY | 2025-10-02 20:42 | XMS_ITS | Encounter Summary ---
Author Organization [facility] Address [address] [facility] [address] [place] [address] Phone Care Team Providers Care Math Coach Name Role Phone Alejandra Waldrop MD Primary Care Provider Encounter Details Date Type Department Care Team (Late st Contact Info) Description 05/22/2023 Procedure Pass [place] Admitting Dept - Virtual Department [address] [place] [address] Social History Tobacco Use Types Packs/Day Years [...] on filedocumented in this encounter Care Teams Math Coach Relationship Specialty Start Date End Date Alejandra Waldrop MD [address] [place] [address] PCP - General Family Medicine 08/16/20 documented as of this encounter Additional Source Comments The information contained in this document represents components of the legal health record. It is not the complete legal health record.[facility]
--- OUTSIDE RECORDS SUMMARY | 2025-10-02 20:42 | XMS_ITS | Encounter Summary ---
Author Organization [facility] Address [address] [facility] [address] [place] [address] Phone Care Team Providers Care Raisin Washer Name Role Phone Alejandra Waldrop MD Primary Care Provider Encounter Details Date Type Department Care Team (Late st Contact Info) Description 05/18/2023 Procedure Pass [place] Admitting Dept - Virtual Department [address] [place] [address] Social History Tobacco Use Types Packs/Day Years [...] on filedocumented in this encounter Care Teams Raisin Washer Relationship Specialty Start Date End Date Alejandra Waldrop MD [address] [place] [address] PCP - General Family Medicine 08/16/20 documented as of this encounter Additional Source Comments The information contained in this document represents components of the legal health record. It is not the complete legal health record.[facility]
--- OUTSIDE RECORDS SUMMARY | 2025-10-02 20:42 | XMS_ITS | Encounter Summary ---
Author Organization [facility] Address [address] [facility] [address] [place] [address] Phone Care Team Providers Care Vmware Engineer Name Role Phone Alejandra Waldrop MD Primary Care Provider Encounter Details Date Type Department Care Team (Late st Contact Info) Description 05/22/2023 Procedure Pass [facility] [address] [place] [address] Social History Tobacco Use Types Packs/Day Years [...] on filedocumented in this encounter Care Teams Vmware Engineer Relationship Specialty Start Date End Date Alejandra Waldrop MD [address] [place] [address] PCP - General Family Medicine 08/16/20 documented as of this encounter Additional Source Comments The information contained in this document represents components of the legal health record. It is not the complete legal health record.[facility]
--- OUTSIDE RECORDS SUMMARY | 2025-10-02 20:42 | XMS_ITS | Clinical Summary ---
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 Active ascorbic acid, vitamin C, (VITAMIN C) 500 mg Chew Take 500 mg by mouth daily. Active butalbital-acetam inophen-caffeine (FIORICET, ESGIC) 50-325-40 mg per tablet Take by mouth. 2 Active cholecalciferol (VITAMIN D3) 2,000 unit capsule Take 2,000 Units by mouth daily. Active DULoxetine (CYMBALTA) 60 MG capsule Take 1 capsule by mouth every morning. 3 Active estradioL (ESTRACE) 1 MG tablet 3 Active levothyroxine (SYNTHROID, LEVOTHROID) 125 MCG tablet Take 1 tablet by mouth every morning. 3 Active nystatin-triamcin olone cream 2 (two) times a day as needed. 3 Active omeprazole (PRILOSEC) 20 MG capsule See Instructions, TAKE ONE CAPSULE EVERY MORNING BEFORE BREAKFAST, # 90 capsule, 0 Refills, 09/09/22 10:20:00 EST, [facility]/pharmacy #[id number], 165, cm, 08/08/22 11:29:00 EDT, Height 2 Active pimecrolimus (ELIDEL) 1 % cream APPLY TWICE A DAY TO AFFECTED AREA ON FACE NEEDED 3 Active predniSONE (DELTASONE) 1 MG tablet TAKE 2 TABLETS BY MOUTH ALONG WITH ONE 5 MG TABLET TO MAKE 7 MG DAILY 3 Active predniSONE (DELTASONE) 5 MG tablet Take 5 mg by mouth every morning. 3 Active COSENTYX PEN, 2 PENS, 150 mg/mL subcutaneous pen injection 3 Active hydroCHLOROthiazi de (HYDRODIURIL) 12.5 MG tablet Take 12.5 mg by mouth daily. Active amLODIPine (NORVASC) 5 MG tablet Take 5 mg by mouth every morning. 3 Active docusate sodium (COLACE) 50 MG capsule Take 1 capsule (50 mg total) by mouth 2 (two) times a day. 30 capsule 3 3 Active ondansetron (ZOFRAN) 4 MG tablet Take 1 tablet (4 mg total) by mouth every 8 (eight) hours as needed for nausea. 30 tablet 2 3 Active estradioL (ESTRACE) 0.01 % (0.1 mg/gram) vaginal cream Place 2 g vaginally daily. Active oxyCODONE-acetami nophen (PERCOCET) 5-325 mg per tabletIndications :Hematoma Take 1 tablet by mouth every 4 (four) hours as needed for pain (specific location in comments). Partial fill ok 20 tablet 3 Active Active Problems Problem Noted Date Diagnosed Date Skin laxity 03/10/2023 Neck pain 03/10/2023 Macromastia 03/10/2023 Upper back pain 03/10/2023 Intertrigo 03/10/2023 Family History Medical History Relation Comments Dementia Father Breast cancer Mother Cancer Mother Dementia Mother Hypertension Mother Relation Status Comments Father Mother Social History Tobacco Use Types Packs/Day Years Used Date Smoking Tobacco: Never Smokeless Tobacco: Never Tobacco Cessation:Counseling Given: Not Answered Alcohol Use Standard Drinks/Week Comments Not Currently [...] Sign Reading Time Taken Comments Blood Pressure 147/58 05/22/2023 4:30 PM EDT Pulse 86 05/22/2023 3:15 PM EDT Temperature 36.3 C (97.3 F) 05/22/2023 3:00 PM EDT Respiratory Rate 30 05/22/2023 3:15 PM EDT Oxygen Saturation 95% 05/22/2023 4:30 PM EDT Inhaled Oxygen Concentration - - Weight 63.5 kg (140 lb) 05/22/2023 1:05 PM EDT Height 157.5 cm (5' 2 ) 05/22/2023 1:05 PM EDT Body Mass Index 25.61 05/22/2023 1:05 PM EDT Plan of Treatment Health Maintenance Due Date Last Done Comments LIPID PANEL 1947 TSH LEVEL 1947 DEPRESSION SCREENING 1959 HEPATITIS C SCREENING 12/16/1965 ZOSTER VACCINES (1 of 2) 12/16/1997 OSTEOPOROSIS SCREENING INITIAL (ONE-TIME) 12/16/2012 Adult Td,Tdap Booster 01/30/2015 01/30/2005 POTASSIUM LEVEL 08/16/2021 08/16/2020 RSV VACCINE (1 - 1-dose 75+ series) 12/16/2022 INFLUENZA VACCINE (#1) 2025 2, 07/27/2021, 07/22/2018, Additional history exists COVID-19 VACCINE (3 - 2024- season) 2025 01/04/2021, 12/13/2020 PNEUMOCOCCAL VACCINES (50+ years) Completed 07/26/2019, 08/14/2014, 07/25/2014, Additional history exists SMOKING STATUS SCREENING (Once After 26 Yrs) Completed 05/22/2023 HEPATITIS A VACCINES Aged Out No long er eligible based on patient's age to complete this topic HIB VACCINES Aged Out No longer eligi ble based on patient's age to complete this topic MENINGOCOCCAL VACCINES (ACWY) Aged Out No longer eligible based on patient's age to complete this topic MENINGOCOCCAL VACCINES (B) Aged Out N o longer eligible based on patient's age to complete this topic Medical Devices Implanted Type Area Computer Support Analyst Device Identifier Shelf Expiration Date Model / Serial / Lot Mesh-05/18/2019 Implanted:05/18 (Quantity not on file) Mesh Umbilical Procedures Procedure Name Priority Date/Time Associated Diagnosis Comments BASIC METABOLIC PANEL (BMP) Routine 08/16/2020 1:00 PM EDT Fibrohistiocytic proliferation of the skin from Last 3 Months or Most Recently Relevant to Health Maintenance Results * (ABNORMAL) Basic metabolic panel (08/16/2020 1:00 PM EDT) SODIUM 139 133 - 146 mmol/L [facility] CHLORIDE 101 96 - 108 mmol/L [facility] POTASSIUM 3.9 3.3 - 5.1 mmol/L [facility] CO2 30 21 - 35 mmol/L [facility] BUN 11 6 - 19 mg/dL [facility] CREATININE 0.70 0.5 - 1.5 mg/dL [facility] GLUCOSE 107(H) 70 - 99 mg/dL [facility] CALCIUM 9.9 8.4 - 10.3 mg/dL [facility] EGFR 87 >59 mL/min/1.7 3m2 [facility] Comment:Estimated glomerular filtration rate calculated using the CKD-EPI equation. ANION GAP 12 10 - 20 mmol/L [facility] Blood 08/16/2020 1:00 PM EDT 08/16/2020 1:05 PM EDT us Fran Bowers MD, PhD LAB BLOOD BKR ORDERABL ES Final Result [address] [id number] from Last 3 Months or Most Recently Relevant to Health Maintenance Insurance MEDICARE PART A & B [employer] MEDEX SUPPLEMENT MEDICARE PART A & B [employer] MEDEX SUPPLEMENT MEDICARE PART A & B [employer] MEDEX SUPPLEMENT MEDICARE PART A & B [employer] MEDEX SUPPLEMENT MEDICARE PART A & B [employer] MEDEX SUPPLEMENT MEDICARE PART A & B [employer] MEDEX SUPPLEMENT MEDICARE PART A & B [employer] MEDEX SUPPLEMENT MEDICARE PART A & B [facility] MEDEX SUPPLEMENT MEDICARE PART A & B [employer] MEDEX SUPPLEMENT Advance Directives For more information, please contact: [phone] (9AM - 5PM Adri/[facility], Thursday-Thursday) * Full Code (Latest Code Status on File) Date Activated Date Inactivated Comments 05/22/2023 3:05 PM Question Answer Comments Code Status Confirmed With: Patient * Full Code Date Activated Date Inactivated Comments 05/18/2023 9:44 AM 05/22/2023 3:05 PM Question Answer Comments Code Status Confirmed With: Patient Care Teams 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 It is not the complete legal health record.[facility]
== END 2025-10-02 15:13 | disposition home or self-care (01) ==
LOC: HO.PMC 14:18
PROVIDERS: PCP Nurse Practitioner Family; Visit Provider Nurse Practitioner Family
DX: G89.4 Chronic pain syndrome (principal); M96.1 Postlaminectomy syndrome, not elsewhere classified; M47.817 Spondylosis without myelopathy or radiculopathy, lumbosacral region; M54.9 Dorsalgia, unspecified; M43.16 Spondylolisthesis, lumbar region; M51.369 Other intervertebral disc degeneration, lumbar region without mention of lumbar back pain or lower extremity pain; M41.9 Scoliosis, unspecified
CPT/HCPCS: 99204

== ENCOUNTER → 2025-10-02 15:26 | Outpatient (BNV) | payer MEDICARE, SELFPAY | PROVIDERS: PCP Nurse Practitioner Family; Visit Provider Radiology Diagnostic Radiology | DX: M51.369 Other intervertebral disc degeneration, lumbar region without mention of lumbar back pain or lower extremity pain (principal); M47.816 Spondylosis without myelopathy or radiculopathy, lumbar region; M41.86 Other forms of scoliosis, lumbar region; M51.34 Other intervertebral disc degeneration, thoracic region; M41.84 Other forms of scoliosis, thoracic region | CPT/HCPCS: 72072; 72110 ==